=== PATIENT | male | born 1955 | race Caucasian/White ===

== ENCOUNTER 2022-11-18 10:34 | Emergency (ER) | payer OTHER ==
[~2022-11-18] VITALS: Ht 175.3 cm; Wt 93.4 kg
[2022-11-18 11:02] VITALS: BP 159/84
[2022-11-18] MEDS ORDERED: OXYM15SP72 NS (11:56)
--- NOTE | 2022-11-18 12:03 | NUR ---
Patient discharged with v/s stable. Written and verbal after care instructions given and explained. Patient alert, oriented and verbalized understanding of instructions. Ambulatory with steady gait. All questions addressed prior to discharge. ID band removed. Patient advised to follow up with PMD. Rx of AFRIN given. Patient educated on indication of medication including possible reaction and side effects. Opportunity to ask questions provided and answered.
== END 2022-11-18 12:03 | disposition home or self-care (01) ==
LOC: MED 10:34
DX: R04.0 Epistaxis (principal); E11.9 Type 2 diabetes mellitus without complications; I10 Essential (primary) hypertension; Z79.4 Long term (current) use of insulin; Z79.899 Other long term (current) drug therapy
CPT/HCPCS: 99282

== ENCOUNTER 2023-04-11 18:53 | Emergency (ER) | payer OTHER ==
[~2023-04-11] VITALS: Ht 172.7 cm; Wt 93.9 kg
[~2023-04-11 18:53] MED LIST: OXYM15SP72 NS
[2023-04-11 19:53] VITALS: BP 125/73; PULSE 76; RESP 16; TEMP 101; O2SAT 95
[2023-04-11] MEDS ORDERED: KETOROLAC 30 MG/ML VIAL IVP ONE (23:10)
[2023-04-11] MEDS ORDERED: NACL 0.9% 1,000 ML IV SCH (23:10)
[2023-04-11 23:41] LABS: BASOPHILS % (AUTO) 0.3 % (0.0-2.0); HEMATOCRIT 43.7 % (36-52); HEMOGLOBIN 14.5 g/dL (12.0-18.0); LYMPHOCYTES # (AUTO) 0.9 K/uL (2.0-11.5); LYMPHOCYTES % (AUTO) 7.4 % (20.5-51.1); MEAN CORPUSCULAR HEMOGLOBIN 29 pg (27-31); MEAN CORPUSCULAR HGB CONC 33 g/dL (33-37); MEAN CORPUSCULAR VOLUME 87.9 fL (80-94); MONOCYTES # (AUTO) 0.8 K/uL (0.8-1.0); MONOCYTES % (AUTO) 6.5 % (1.7-9.3); NEUTROPHILS # (AUTO) 10.5 K/uL (1.8-7.7); NEUTROPHILS % (AUTO) 85.8 % (42.2-75.2); PLATELET COUNT (AUTO) 187 K/uL (140-450); RED BLOOD CELL COUNT(AUTO) 4.97 MIL/uL (4.20-6.10); RED CELL DISTRIBUTION WIDTH 15.6 % (11.6-13.7); WHITE BLOOD COUNT (AUTO) 12.3 K/uL (4.8-10.8)
[2023-04-11 23:42] VITALS: BP 128/68; PULSE 82; RESP 17; O2SAT 98
[2023-04-11 23:57] LABS: ALBUMIN 3.7 g/dL (3.4-5.0); ANION GAP 17.6 (8-16); CALCIUM 8.3 mg/dL (8.5-10.1); CARBON DIOXIDE 20.3 mmol/L (21-32); CREATININE 1.3 mg/dL (0.6-1.3); POTASSIUM 3.9 mmol/L (3.5-5.1); TOTAL BILIRUBIN 0.5 mg/dL (0.0-1.0); TOTAL PROTEIN, SERUM 7.8 g/dL (6.4-8.2)
[2023-04-12 00:22] LABS: APPEARANCE,URINE HAZY (CLEAR); BILIRUBIN,URINE NEGATIVE (NEGATIVE); BLOOD, URINE 3+ (NEGATIVE); COLOR,URINE YELLOW (YELLOW); LEUKOCYTE ESTERASE ,URINE 1+ (NEGATIVE); NITRITE, URINE POSITIVE (NEGATIVE); PH,URINE 6.5 (5.0-9.0); PROTEIN,URINE 1+ (NEGATIVE); UGLUCOSE 2+ (NEGATIVE); UROBILINOGEN,URINE 0.2 EU/dL (0.2 - 1)
[2023-04-12 00:41] LABS: BACTERIA,URINE 2+ /HPF (None Seen); SQUAMOUS EPITHELIAL CELL,UR 0-3 (FEW) /LPF (0-3 (FEW)); WBC,URINE 60-80 /HPF (0-5)
[2023-04-12] MEDS ORDERED: CIPR500T4 PO (02:15)
== END 2023-04-12 02:19 | disposition home or self-care (01) ==
LOC: MED 18:53
DX: N39.0 Urinary tract infection, site not specified (principal); N40.0 Benign prostatic hyperplasia without lower urinary tract symptoms; N32.0 Bladder-neck obstruction; Z79.899 Other long term (current) drug therapy; Z98.890 Other specified postprocedural states
CPT/HCPCS: 36415; 74176; 80053; 81001; 85025; 87086; 96361; 96374; 99285; J1885; J7030